=== PATIENT | female | born 1985 | race Caucasian/White ===

== ENCOUNTER 2024-06-13 15:00 | Outpatient (CLI) | payer BC, SELFPAY ==
--- NOTE | ~2024-06-13 | MR_ITS ---
EXAMINATION: MR knee LT wo con DATE: 06/13/2024 16:07 INDICATION: Acute onset left knee pain TECHNIQUE: Magnetic resonance imaging (MRI) of the left knee was performed without intravenous contra st. Sequences included coronal PD-weighted FSE, coronal PD-weighted FS FSE, sagittal T2-weighted FSE , sagittal PD-weighted FS FSE and axial PD weighted fat saturated FSE. COMPARISON: None. FINDINGS: Medial compartment: Medial meniscus is normal. Partial thickness chondral fissuring involving greater 50% the cartilage t hickness but without degenerative subchondral changes at the anterior weightbearing medial femoral co ndyle. Lateral compartment: Lateral meniscus is normal. Deep chondral fissuring without degenerative subchondral changes at the m edial and posterior margins of the lateral tibial plateau. Small central subchondral osteophyte of th e set of deep chondral ulceration and fissuring atrophy posterior weightbearing lateral femoral condy le. Distal deep chondral fissuring with small central subchondral osteophyte at the anterior margin o f the weightbearing lateral femoral condyle. Patellofemoral compartment: Extensive full-thickness cartilage loss with remodeling of the articular cortices of the lateral pérez llar facet, patellar apical ridge and lateral trochlea. Additional deep chondral fissuring with small central subchondral osteophytes at the trochlear groove and without degenerative subchondral changes at the medial trochlea. Ligaments and tendons: Anterior and posterior cruciate ligaments are normal. The medial collateral ligament and fibular joe ateral ligament complex are normal. Mild tendinopathy without tear at the distal quadriceps tendon. H eterotopic ossicle at the anterior tibial insertion of the distal patellar tendon which could represe nt sequela of childhood Young-Schlatter's disease. The visualized medial and lateral hamstring tendo ns as well as the iliotibial band are normal. Fluid: Small left knee joint effusion at the suprapatellar pouch. Small Rocha's cyst. 2.5 x 0.8 x 1.6 cm loo se osteochondral body anterior to the intercondylar notch and periphery of the anterior horn of the l ateral meniscus. Groove Osseous/other: There is mild lateral patellar tilt and subluxation. No fracture or pathologic marrow replacing proce ss. Moderate to large marginal osteophytes in all 3 compartments. IMPRESSION: 1. Tricompartmental osteoarthritis, severe with extensive high-grade chondromalacia at the lateral pa tellofemoral compartment and mild with smaller regions of moderate grade chondromalacia the medial co mpartment and moderate to high-grade chondromalacia in the lateral compartment. 2. Normal menisci and stabilizing. 3. Small joint effusion and small Rocha's cyst. Reviewed, dictated and finalized at location A. IMPRESSION: 1. Tricompartmental osteoarthritis, severe with extensive high-grade chondromal acia at the lateral patellofemoral compartment and mild with smaller regions of moderate grade chondromalacia the medial compartment and moderate to high-grad e chondromalacia in the lateral compartment. 2. Normal menisci and stabilizing. 3. Small joint effusion and small Rocha's cyst.
== END 2024-06-13 15:01 ==
PROVIDERS: PCP Orthopaedic Surgery; Visit Provider Orthopaedic Surgery
DX: M17.12 Unilateral primary osteoarthritis, left knee (principal); M25.462 Effusion, left knee; M71.22 Synovial cyst of popliteal space [Baker], left knee
CPT/HCPCS: 73721